=== PATIENT | female | born 1980 | race Caucasian/White ===

== ENCOUNTER 2018-08-10 11:18 | Emergency (ER) | payer OTHER ==
--- NOTE | 2018-08-10 12:11 | EDPHY ---
General Time Seen by Provider: 08/10/18 11:43 Narrative: CLINICAL IMPRESSION: Vasovagal syncope, chin contusion ASSESSMENT/PLAN: 37-year-old female presents to the emergency department 2 days after she fainted at a local restaurant while standing in line for food. Patient had been drinking prior to the fall, admits that she was hungry, and had a prodrome feeling of lightheadedness and feeling hot. Patient has a chin contusion with no corresponding mandibular pain, mandible condyle pain, external auditory canal laceration, malocclusion, intraoral laceration, dental injury, maxillofacial pain. She has no palpable contusion abrasion or laceration to the scalp and denies headaches, nausea, vomiting, dizziness, vertigo, acute vision or hearing changes. EKG shows normal sinus rhythm with no acute ST or T- wave changes and was reviewed with Dr. Frias. Labs are also reassuring with no electrolyte imbalance or metabolic disturbance. Patient reports she is a "nomad " and planning on leaving town in the next week and therefore does not wish to establish care with a local primary care provider. I suspect patient has suffered a vasovagal event. I encouraged establishment with a PCP and referrals were given. Warning signs for return to emergency department sooner outlined and discharge. DIFFERENTIAL DX: Differential diagnosis for headache includes but not limited to closed head injury, maxillofacial contusion, maxillofacial fracture, electrolyte imbalance, metabolic disturbance, cardiac arrhythmia. ED PROCEDURES: See lab and/or imaging results below ED COURSE: EKG received at 12:00 p.m.. Review by myself and Dr. Frias. Normal sinus rhythm , no acute ST or T-wave change. CHIEF COMPLAINT: Syncopal episode 2 days ago HPI: 37-year-old female presents to the emergency department after she fainted while standing in line at a restaurant waiting for food. Patient reports she was feeling very hungry had had alcohol to drink prior to arrival at the restaurant , had not had much water to drink, and remembers feeling hot as though the room was closing in on her. She reports she has fainted like this in the past, was looking for a chair, but then the next thing she knew people were helping her up. She reports no headaches, dizziness, vertigo, nausea, vomiting, neck pain, upper extremity weakness or numbness. She has a large contusion to the chin but reports no dental pain intraoral laceration, acute vision or hearing changes. No open wounds. Patient reports she plans to leave town in the next week and does not wish to establish care with a primary care provider. She has no known cardiac history or family history of cardiac disease. She denies chest pain and shortness of breath. PAST MEDICAL HISTORY: None reported See nurse/triage notes for additional history if applicable Pertinent Past Surgical History: Otherwise healthy Family History: None reported Social History: Otherwise healthy, nonsmoker REVIEW OF SYSTEMS: All other systems negative Constitutional: No fever, no chills, appetite change. Eyes: No discharge, vision change ENT: No sore throat, congestion, ear pain. Cardiovascular: No chest pain, no palpitations. Respiratory: No cough, no shortness of breath. Gastrointestinal: No abdominal pain, no vomiting, diarrhea. Musculoskeletal: No back pain, joint swelling, joint pain, myalgias. Skin: No rashes, color change, positive for contusion to chin. Neurological: No headache, dizziness, weakness. PHYSICAL EXAM: General Appearance: Alert, oriented, appropriate, cooperative, NAD, well hydrated, non-toxic appearing, VSS, no hypoxia. HEENT: TMs are clear bilaterally no perforation or FB, no injection, no evidence of serous or mucopurulent otitis. No hemotympanum or Seymour sign, contusion to chin, no pain to palpation along the mandible or mandibular condyle , no external auditory canal laceration. No malocclusion, intraoral laceration or dental injury. Oropharynx clear is no erythema or exudates, no tonsillar hypertrophy or asymmetry. Dentition without abnormality. No palpable scalp contusion or laceration Eyes: PERRLA, no acute vision change, nystagmus, swelling, discharge, pain or photosensitivity. Conjunctiva pink, no pallor or injection Neck: Supple, nontender, no lymphadenopathy, no midline pain, FROM, no meningismus. Respiratory: There are no retractions, lungs are clear to auscultation. Cardiac: Regular rate and rhythm, no murmurs or gallops. Gastrointestinal: [Abdomen is soft, nontender Neurological: Alert and oriented x 3, CN 2-12 grossly intact, normal gait no ataxia, DTR's intact, normal sensation and strength Skin: Warm, dry, no rashes, no nodules on palpation. Musculoskeletal: Extremities are symmetrical, full range of motion, no tenderness, deformity, swelling, or erythema. MEDICAL DECISION MAKING: Patient was seen independently. Secondary supervising physician at time of evaluation was Dr Frias. Diagnosis: Vasovagal syncope, chin contusion . New, requires workup Summary: See Assessment and Plan for summary of ED visit Clinical lab tests: ordered / reviewed. Independent visualization of images, tracing, or specimens: Not obtained. Patient Progress: Improved. - History Smoking Status: Never smoked - Objective Vital Signs: Initial Vital Signs Temperature (C) 36.9 C 08/10/18 11:25 Heart Rate 68 08/10/18 11:25 Respiratory Rate 18 08/10/18 11:25 Blood Pressure 116/79 08/10/18 11:25 O2 Sat (%) 97 08/10/18 11:25 O2 Delivery Mode Room Air Allergies/Adverse Reactions: No Known Allergies Allergy (Unverified 08/10/18 11:25) Home Medications: Medication Instructions Recorded NK [No Known Home Meds] 08/10/18 Laboratory Results: Laboratory Results 08/10/18 13:02 08/10/18 08/10/18 13:02 11:59 Sodium 137 mEq/L mEq/L (135-145) Potassium 4.3 mEq/L mEq/L (3.5-5.2) Chloride 106 mEq/L mEq/L (97-110) Carbon Dioxide 25 mEq/l mEq/l (22-31) Anion Gap 6 mEq/L mEq/L (6-14) BUN 13 mg/dL mg/dL (7-23) Creatinine 0.8 mg/dL mg/dL (0.6-1.0) Estimated GFR > 60 Glucose 85 mg/dL mg/dL (70-100) POC Glucose 82 mg/dL mg/dL (70-100) Calcium 9.3 mg/dL mg/dL (8.5-10.4) Point of Care Test Results: Chemistry 08/10/18 11:59 POC Glucose 82 mg/dL mg/dL (70-100) Departure - Departure Disposition: Home, Routine, Self-Care Clinical Impression: Vasovagal syncope, Chin contusion Condition: Good Instructions: Syncope (ED) Additional Instructions: DISCHARGE INSTRUCTIONS FROM YOUR DOCTOR Thank you for visiting our emergency department today. Please keep in mind that discharge from the emergency department does not mean that there is nothing wrong - it simply means that we have not identified an emergency condition that requires further evaluation or treatment in the hospital. You should always plan to follow up with primary care for re-evaluation of your condition in the next 2-3 days. If you have been referred to a specialist, please call as soon as possible (today or tomorrow) to schedule your follow up appointment at the appropriate time. LAB EVALUATION AND EKG IN THE EMERGENCY DEPARTMENT ARE REASSURING WITH NO ACUTE ABNORMALITIES IDENTIFIED. PLEASE STAY WELL HYDRATED AND EAT REGULAR MEALS. MONITOR SYMPTOMS CLOSELY. RETURN TO EMERGENCY DEPARTMENT FOR RECURRENT FAINTING EPISODES, HEADACHE, DIZZINESS, VERTIGO, NECK PAIN, UPPER EXTREMITY WEAKNESS OR NUMBNESS, CHEST PAIN, SHORTNESS OF BREATH, OR ANY OTHER CONCERNS. People present with illnesses and injuries in different ways, and it is always possible that we have missed something. You may always return for re-evaluation if symptoms worsen or if they are not improving or if you develop new/different symptoms. Again, thank you for choosing our emergency department. We hope that you feel better. Referrals: NONE *PRIMARY CARE P,. [Primary Care Provider] - As per Instructions Boston Hartmann MD [[facility] Primary Care Provider] - As per Instructions
[2018-08-10 14:13] VITALS: BP 114/78
--- NOTE | 2018-08-10 15:25 | CPEKG ---
Test Reason : OPEN Blood Pressure : / mmHG Vent. Rate : 068 BPM Atrial Rate : 067 BPM P-R Int : 137 ms QRS Dur : 083 ms QT Int : 406 ms P-R-T Axes : 021 042 013 degrees QTc Int : 432 ms Sinus rhythm Confirmed by Mariola Frias ([id number]) on 08/10/2018 3:24:24 PM Referred By: Mariola Frias Confirmed By:Mariola Frias
== END 2018-08-10 14:13 | disposition home or self-care (01) ==
DX: S00.83XA Contusion of other part of head, initial encounter (principal); R55 Syncope and collapse; W19.XXXA Unspecified fall, initial encounter; Y92.511 Restaurant or cafe as the place of occurrence of the external cause; Y93.89 Activity, other specified; Y99.8 Other external cause status